=== PATIENT | female | born 1965 | race American Indian/Alaskan Native ===

== ENCOUNTER 2018-03-13 09:25 | Outpatient (CLI) | payer OTHER ==
--- NOTE | 2018-03-13 10:34 | XRay Report ---
LUMBOSACRAL SPINE, 3 VIEWS: History: Disability exam, this disease Findings: The vertebral bodies, disk spaces and posterior elements are intact. No compression deformity or malalignment. Minimal degenerative this disease and facet arthropathy are identified at L4-5 and L5 S1. The SI joints are symmetric and unremarkable. Impression: Minimal degenerative changes at the lowest 2 levels. These findings appear appropriate for this persons age.
== END 2018-03-13 09:26 | disposition home or self-care (01) ==
LOC: XRAY 09:25
PROVIDERS: ATTEND Internal Medicine
DX: Z02.71 Encounter for disability determination (principal); M51.37 Other intervertebral disc degeneration, lumbosacral region
CPT/HCPCS: 72100